=== PATIENT | male | born 1980 | race Caucasian/White ===

== ENCOUNTER 2016-11-22 15:25 | Emergency (ER) | payer OTHER ==
[~2016-11-22] VITALS: Ht 190.5 cm; Wt 84.5 kg
[~2016-11-22 15:25] MED LIST: BACTRIM DS 8001 TAB PO; CLINDAMYCIN300 MG PO
[2016-11-22] MEDS ORDERED: ALEVE220 M1 PO (15:34)
[2016-11-22] MEDS ORDERED: OXYCODONE PO (17:31)
[2016-11-22 17:33] VITALS: BP 126/84
[2016-12-25] MEDS ORDERED: IBUPROFEN200 MG PO (16:01)
== END 2016-11-22 17:39 | disposition home or self-care (01) ==
LOC: ED 15:25
DX: S49.81XA Other specified injuries of right shoulder and upper arm, initial encounter (principal); M25.511 Pain in right shoulder; M25.521 Pain in right elbow; X50.1XXA Overexertion from prolonged static or awkward postures, initial encounter; Y92.018 Other place in single-family (private) house as the place of occurrence of the external cause
CPT/HCPCS: A4565

== ENCOUNTER 2016-12-25 16:13 | Emergency (ER) | payer OTHER ==
[~2016-12-25 16:13] MED LIST changes: +ALEVE220 M1 PO; +IBUPROFEN200 MG PO; +OXYCODONE PO
[2016-12-25] MEDS ORDERED: OXYCODONE PO (16:58)
== END 2016-12-25 17:20 | disposition home or self-care (01) ==
LOC: ED 16:13
DX: S42.034A Nondisplaced fracture of lateral end of right clavicle, initial encounter for closed fracture (principal); Y93.83 Activity, rough housing and horseplay; Y92.018 Other place in single-family (private) house as the place of occurrence of the external cause; F17.210 Nicotine dependence, cigarettes, uncomplicated; F15.21 Other stimulant dependence, in remission; B18.2 Chronic viral hepatitis C
CPT/HCPCS: J1885

== ENCOUNTER 2017-01-29 14:55 | Outpatient (RCR) | payer SELFPAY ==
[2016-12-25 17:14] VITALS: BP 126/91
== END 2017-03-16 11:25 | disposition home or self-care (01) ==
LOC: PT 14:55
DX: S14.3XXD Injury of brachial plexus, subsequent encounter (principal)

== ENCOUNTER → 2017-02-21 | Outpatient (CLI) | payer SELFPAY | LOC: RAD 08:06 | DX: S14.3XXA Injury of brachial plexus, initial encounter (principal); X58.XXXA Exposure to other specified factors, initial encounter ==

== ENCOUNTER 2017-08-15 13:00 | Emergency (ER) | payer SELFPAY ==
[2017-08-15] MEDS ORDERED: OXYCODONE PO (15:48)
[2017-08-15 16:14] VITALS: BP 138/72
== END 2017-08-15 16:12 | disposition home or self-care (01) ==
LOC: ED 13:00
DX: S40.011A Contusion of right shoulder, initial encounter (principal); V18.0XXA Pedal cycle driver injured in noncollision transport accident in nontraffic accident, initial encounter; Y92.414 Local residential or business street as the place of occurrence of the external cause; G62.9 Polyneuropathy, unspecified; S42.034D Nondisplaced fracture of lateral end of right clavicle, subsequent encounter for fracture with routine healing; X58.XXXD Exposure to other specified factors, subsequent encounter; B19.20 Unspecified viral hepatitis C without hepatic coma
CPT/HCPCS: J1885

== ENCOUNTER 2018-06-28 22:56 | Emergency (ER) | payer MEDICAID ==
[~2018-06-28] VITALS: Ht 190.5 cm; Wt 80.3 kg
[~2018-06-28 22:56] MED LIST changes: +BACTRIM DS TAB1 EACH PO
[2018-06-29] MEDS ORDERED: KETOROLAC10 MG PO (02:30)
[2018-06-29] MEDS ORDERED: OXYCODONE PO (02:30)
[2018-06-29 02:43] VITALS: BP 109/70
== END 2018-06-29 02:43 | disposition home or self-care (01) ==
LOC: ED 22:56
DX: S22.079A Unspecified fracture of T9-T10 vertebra, initial encounter for closed fracture (principal); S20.219A Contusion of unspecified front wall of thorax, initial encounter; S20.411A Abrasion of right back wall of thorax, initial encounter; S40.811A Abrasion of right upper arm, initial encounter; W10.8XXA Fall (on) (from) other stairs and steps, initial encounter; Y92.009 Unspecified place in unspecified non-institutional (private) residence as the place of occurrence of the external cause; F17.200 Nicotine dependence, unspecified, uncomplicated; R40.2412 Glasgow coma scale score 13-15, at arrival to emergency department; R41.0 Disorientation, unspecified; R47.81 Slurred speech; R26.0 Ataxic gait; R68.84 Jaw pain
CPT/HCPCS: J1885

== ENCOUNTER 2019-03-23 16:15 | Emergency (ER) | payer MEDICAID ==
[~2019-03-23 16:15] MED LIST changes: +KETOROLAC10 MG PO
[2019-03-23] MEDS ORDERED: AMOXICILLIN 50500 MG PO (17:51)
[2019-03-23] MEDS ORDERED: TRAMADOL 50 MG TAB PO (17:51)
[2019-03-23 17:59] VITALS: BP 138/88
== END 2019-03-23 18:00 | disposition home or self-care (01) ==
LOC: ED 16:15
DX: S02.5XXA Fracture of tooth (traumatic), initial encounter for closed fracture (principal); S00.83XA Contusion of other part of head, initial encounter; M54.2 Cervicalgia; M47.9 Spondylosis, unspecified; F90.9 Attention-deficit hyperactivity disorder, unspecified type; Z86.19 Personal history of other infectious and parasitic diseases; Z86.59 Personal history of other mental and behavioral disorders; W16.122A Fall into natural body of water striking bottom causing other injury, initial encounter; Y92.828 Other wilderness area as the place of occurrence of the external cause
CPT/HCPCS: J0595